=== PATIENT | female | born 1990 | race African-American/Black ===

== ENCOUNTER 2016-11-20 14:27 | Emergency (ER) | payer OTHER ==
[~2016-11-20 14:27] MED LIST: CIPRO PO; KETOPROFEN PO; ROBAXIN500 MG PO; VOLTAREN75 MG PO
[2016-11-20 15:48] LABS: URINE SOURCE CLEAN CATCH
[2016-11-20 15:51] LABS: URINE APPEARANCE CLEAR; URINE BILIRUBIN NEG (NEG); URINE BLOOD TRACE (NEG); URINE COLOR YELLOW; URINE GLUCOSE NEG (NEG); URINE KETONE NEG (NEG); URINE LEUKOCYTE ESTERASE NEG (NEG); URINE NITRATE NEG (NEG); URINE PH 5.5 (5-8); URINE PROTEIN NEG (NEG); URINE SPECIFIC GRAVITY 1.029 (1.003-1.035)
[2016-11-20 15:54] LABS: URBCS1 AUWI 0-2 /[HPF] (0-2); URINE BACTERIA AUWI NEG (NEGATIVE); URINE SQUAMOUS EPITHELIAL CELL OCC /[HPF]
[2016-11-20 15:59] LABS: CULTURE INDICATED? NO
== END 2016-11-20 16:23 | disposition home or self-care (01) ==
LOC: CFTX 14:27 → CED 14:27 → CFTX 15:36
PROVIDERS: Physician Assistant
DX: M54.6 Pain in thoracic spine (principal); J45.909 Unspecified asthma, uncomplicated; K21.9 Gastro-esophageal reflux disease without esophagitis; D64.9 Anemia, unspecified
CPT/HCPCS: 81003; 84703; 96372; 99283; J1885